=== PATIENT | female | born 1950 | race Caucasian/White ===

== ENCOUNTER 2017-01-28 00:19 | Emergency (ER) | payer OTHER ==
[~2017-01-28] VITALS: Ht 147.3 cm; Wt 109.6 kg
[~2017-01-28 00:19] MED LIST: ANTACID SUSPEN PO; ARTHRITIS PAIN RELIE; COREG6.25 M1 PO; Cinnamon Bark PO; Colace PO; DEMADEX10 MG PO; DIABETA,MICRONAS5 MG PO; DIABETES MED; Diabeta,Micronase PO; ECPIRIN325 M1 PO; EXTRA STRENGTH500 M1 PO; FUROSEMIDE40 MG PO; Glucophage PO; K-DUR10 ME2 PO; K-TAB10 MEQ PO; LASIX20 MG PO; LORAZEPAM0.5 MG PO; Lasix PO; METFORMIN HCL500 MG PO; MONTELUKAST SOD10 MG PO; NEURONTIN100 MG PO; NIZORAL 2% CREA15 GM TP; PRILOSEC20 MG PO; Protonix PO; THEO-DUR,THEOC200 MG PO; THEOPHYLLINE A300 M1 PO; TORSEMIDE10 MG PO; [UNRECOGNIZED DRUG - OTHER] PO
[2017-01-28] MEDS ORDERED: ZESTRIL2.5 MG PO (01:01)
[2017-01-28 01:03] LABS: ADD MIUA? NO; BILIRUBIN NEGATIVE; BLOOD NEGATIVE; COLOR YELLOW ((YELLOW)); GLUCOSE (STRIP) NEGATIVE; KETONES 5; LEUKOCYTES NEGATIVE; NITRITE NEGATIVE; PROTEIN (STRIP) NEGATIVE; SPECIFIC GRAVITY 1.012 (1.000-1.030); UCUL ADDED? NO; UROBILINOGEN 0.2 MG/DL (0.2-1.0)
[2017-01-28 01:10] LABS: HEMATOCRIT 37.6 % (36.0-46.0); MCH 25.3 PG (29.0-34.0); MCHC 31.9 G/DL (30.0-36.0); MCV 79.2 FL (83-99); MEAN PLAT.VOLUME 8.9 uM^3 (9.5-12.4); PLATELET COUNT 462 K/uL (156-360); RBC DIS.WIDTH-CV 14.8 % (11.8-14.6); RBC DIS.WIDTH-SD 42.5 % (39-53); RED BLOOD COUNT 4.75 M/uL (3.80-5.20); WHITE BLOOD COUNT 8.5 K/uL (4.1-10.2)
[2017-01-28 01:18] LABS: CHLORIDE 96 mEq/L (99-109); POTASSIUM 3.9 mEq/L (3.7-5.4); SODIUM 135 mEq/L (136-147)
[2017-01-28 01:21] LABS: GLUCOSE 175 mg/dL (70-99)
[2017-01-28 01:22] LABS: ANION GAP 13 MEQ/L (2-14); TOTAL BILIRUBIN 0.4 mg/dL (0.0-1.0)
[2017-01-28 01:24] LABS: ALKALINE PHOSPHATASE 98 IU/L (3-129); GFR ESTIMATE (CALCULATED) > 59 mL/min/
[2017-01-28 01:25] LABS: UREA NITROGEN (BUN) 11 mg/dL (9-23)
[2017-01-28 01:26] LABS: DIRECT BILIRUBIN 0.2 mg/dL (0.0-0.3)
[2017-01-28 01:28] LABS: LIPASE 28 U/L (1.0-51.0)
[2017-01-28] MEDS ORDERED: CIPRO500 MG PO (02:04)
[2017-01-28 02:18] VITALS: BP 136/78
== END 2017-01-28 02:54 | disposition home or self-care (01) ==
LOC: EME 00:19
PROVIDERS: Emergency Medicine
DX: N39.0 Urinary tract infection, site not specified (principal); R10.9 Unspecified abdominal pain; E11.9 Type 2 diabetes mellitus without complications; J44.9 Chronic obstructive pulmonary disease, unspecified; I10 Essential (primary) hypertension; K21.9 Gastro-esophageal reflux disease without esophagitis; Z79.84 Long term (current) use of oral hypoglycemic drugs
CPT/HCPCS: 74176; 80048; 80076; 81003; 83605; 83690; 85027; 87040; 99281; 99285; J2270; J2405; J7030